=== PATIENT | male | born 1975 | race Caucasian/White ===

== ENCOUNTER 2021-09-08 15:45 | Inpatient (IN) | payer BC, SELFPAY ==
[~2021-09-08] VITALS: Ht 180.3 cm; Wt 86.2 kg
[2021-09-08 16:10] VITALS: BP_SYST 123
[2021-09-08 17:12] LABS: HEMOGLOBIN 7.8 g/dL (14.0-18.0); MEAN CORPUSCULAR VOLUME 115 fL (79.0-98.0)
[2021-09-08 17:21] LABS: HEMATOCRIT 22.4 % (36-54); MEAN CORPUSCULAR HEMOGLOBIN 40 pg (27-31); MEAN CORPUSCULAR HGB CONC 35 % (32-36); RED CELL DISTRIBUTION WIDTH 23.3 % (9.0-15.0)
[2021-09-08 17:24] LABS: RED BLOOD CELL COUNT(AUTO) 1.95 MIL/uL (4.2-6.2)
[2021-09-08 17:27] LABS: CALCIUM 8.5 mg/dL (8.4-11.0); CREATININE 0.79 mg/dL (0.55-1.30); POTASSIUM 3.9 mmol/L (3.5-5.1)
[2021-09-08 17:33] LABS: ALBUMIN 2.1 g/dL (3.4-4.8); INR 1.2 (0.80-1.20); PROTHROMBIN TIME 12.1 SECS (9.5-12.5); TOTAL BILIRUBIN 5.4 mg/dL (0.0-1.0)
[2021-09-08 17:42] LABS: C-REACTIVE PROTEIN QUANT 9.8 mg/dL (0-0.5)
[2021-09-08 18:34] LABS: BAND % (MANUAL) 1 % (0-6); LYMPHOCYTES % (MANUAL) 27 % (20-46)
[2021-09-08 18:35] LABS: BASOPHILS % (MANUAL) 0 % (0-2); EOSINOPHILS % (MANUAL) 0 % (0-7); MONOCYTES % (MANUAL) 11 % (0-11)
[2021-09-08 21:34] LABS: PLATELET COUNT (AUTO) 21 K/uL (130-430)
[2021-09-08] MEDS: NORMAL SALINE 5 ML DISP.SYRIN IVF SCH (22:00)
[2021-09-08] MEDS ORDERED: LORazepam 2 MG/ML VIAL IVP PRN (22:00)
[2021-09-08] MEDS ORDERED: IBUPROFEN 600 MG TABLET PO PRN (22:00)
[2021-09-08] MEDS ORDERED: NORMAL SALINE 5 ML DISP.SYRIN IVF SCH (22:00)
[2021-09-08] MEDS ORDERED: ONDANSETRON HCL 4 MG/2 ML VIAL IVP PRN (22:00)
[2021-09-08 22:07] VITALS: BP_SYST 112
[2021-09-09 01:09] VITALS: BP_SYST 109
[2021-09-09] MEDS: NORMAL SALINE 5 ML DISP.SYRIN IVF SCH ×2 (05:46→14:00)
[2021-09-09 06:31] LABS: ALBUMIN 1.6 g/dL (3.4-4.8); CALCIUM 7.5 mg/dL (8.4-11.0); CREATININE 0.65 mg/dL (0.55-1.30); PHOSPHORUS 1.8 mg/dL (2.7-4.5); POTASSIUM 3.8 mmol/L (3.5-5.1); TOTAL BILIRUBIN 4.2 mg/dL (0.0-1.0)
[2021-09-09 07:00] VITALS: BP_SYST 105; BP_SYST 113
[2021-09-09 09:59] LABS: MEAN CORPUSCULAR HEMOGLOBIN 39 pg (27-31); MEAN CORPUSCULAR HGB CONC 33 % (32-36); MEAN CORPUSCULAR VOLUME 116 fL (79.0-98.0); WHITE BLOOD COUNT (AUTO) 5.7 K/uL (4.8-10.8)
[2021-09-09 10:24] LABS: RED BLOOD CELL COUNT(AUTO) 1.73 MIL/uL (4.2-6.2)
[2021-09-09 10:27] LABS: HEMOGLOBIN 6.7 g/dL (14.0-18.0); PLATELET COUNT (AUTO) 17 K/uL (130-430)
[2021-09-09 11:38] LABS: ACETAMINOPHEN < 1 ug/mL (1-30)
[2021-09-09 11:41] LABS: TOTAL IRON BIND. CAPACITY 131 ug/dL (250-450)
[2021-09-09 12:25] VITALS: BP_SYST 102
[2021-09-09 13:34] LABS: BASOPHILS % (MANUAL) 0 % (0-2); EOSINOPHILS % (MANUAL) 0 % (0-7); LYMPHOCYTES % (MANUAL) 44 % (20-46); MONOCYTES % (MANUAL) 11 % (0-11)
[2021-09-09 16:06] VITALS: BP_SYST 108
[2021-09-09 19:00] VITALS: BP_SYST 106
[2021-09-09 20:00] VITALS: BP_SYST 106
[2021-09-10] MEDS: NORMAL SALINE 5 ML DISP.SYRIN IVF SCH ×4 (01:21→23:05)
[2021-09-10 01:32] VITALS: BP_SYST 109
[2021-09-10 05:54] LABS: BARBITURATE, URINE NEGATIVE (NEG <=200); BENZODIAZEPINE, URINE NEGATIVE (NEG <=150); CANNABINOID, URINE NEGATIVE (NEG <=50); COCAINE, URINE NEGATIVE (NEG <=150); METHAMPHETAMINES SCREEN,URINE NEGATIVE (NEG <=500); OPIATE, URINE NEGATIVE (NEG <=100); PHENCYCLIDINE SCREEN,URINE NEGATIVE (NEG <=25); UR TRICYCLIC ANTIDEPRESSANTS NEGATIVE (NEG <=300); URINE AMPHETAMINE NEGATIVE (NEG <=500); URINE METHADONE NEGATIVE (NEG <=200); URINE OXYCODONE SCREEN NEGATIVE (NEG <=100); URINE PROPOXYPHENE SCREEN NEGATIVE (NEG <=300)
[2021-09-10 07:04] LABS: INR 1.2 (0.80-1.20); PROTHROMBIN TIME 12.2 SECS (9.5-12.5)
[2021-09-10 07:55] LABS: ALBUMIN 1.6 g/dL (3.4-4.8); CALCIUM 7.8 mg/dL (8.4-11.0); CREATININE 0.61 mg/dL (0.55-1.30); POTASSIUM 3.3 mmol/L (3.5-5.1); TOTAL BILIRUBIN 4.4 mg/dL (0.0-1.0)
[2021-09-10 08:00] VITALS: BP_SYST 107
[2021-09-10 08:03] LABS: HEMATOCRIT 30.2 % (36-54); HEMOGLOBIN 10.4 g/dL (14.0-18.0); MEAN CORPUSCULAR HEMOGLOBIN 37 pg (27-31); MEAN CORPUSCULAR HGB CONC 35 % (32-36); MEAN CORPUSCULAR VOLUME 107 fL (79.0-98.0); RED BLOOD CELL COUNT(AUTO) 2.83 MIL/uL (4.2-6.2); RED CELL DISTRIBUTION WIDTH 25.1 % (9.0-15.0); WHITE BLOOD COUNT (AUTO) 5.1 K/uL (4.8-10.8)
[2021-09-10] MEDS ORDERED: SPIRONOLACTONE 50 MG TABLET (ALDACTONE) PO SCH (08:30)
[2021-09-10 08:32] LABS: PLATELET COUNT (AUTO) 18 K/uL (130-430)
[2021-09-10] MEDS: SPIRONOLACTONE 50 MG TABLET (ALDACTONE) PO SCH (09:22)
[2021-09-10] MEDS: FUROSEMIDE 40 MG TABLET PO SCH (09:23)
[2021-09-10 10:06] LABS: HEPATITIS A AB, IgM Negative (Negative); HEPATITIS B CORE AB, IgM Negative (Negative); HEPATITIS B SURFACE AG Negative (Negative)
[2021-09-10 12:09] LABS: BAND % (MANUAL) 2 % (0-6); BASOPHILS % (MANUAL) 0 % (0-2); CORRECTED WHITE BLOOD COUNT 4.8 K/uL (4.5-11.0); EOSINOPHILS % (MANUAL) 1 % (0-7); LYMPHOCYTES % (MANUAL) 46 % (20-46); MONOCYTES % (MANUAL) 7 % (0-11)
[2021-09-10 12:52] VITALS: BP_SYST 107
[2021-09-10 14:06] LABS: AFP, TUMOR MARKER 3.7 ng/mL (0.0-8.3)
[2021-09-10 16:48] VITALS: BP_SYST 111
[2021-09-10 20:00] VITALS: BP_SYST 111
[2021-09-11] VITALS: BP_SYST 111
[2021-09-11] MEDS ORDERED: PRED10TA PO (03:00)
[2021-09-11] MEDS ORDERED: URSO500T7 PO (03:00)
[2021-09-11] MEDS ORDERED: ACYC400T19 PO (03:00)
[2021-09-11 07:03] LABS: HEMATOCRIT 30.8 % (36-54); HEMOGLOBIN 10.7 g/dL (14.0-18.0); MEAN CORPUSCULAR HEMOGLOBIN 37 pg (27-31); MEAN CORPUSCULAR HGB CONC 35 % (32-36); MEAN CORPUSCULAR VOLUME 106 fL (79.0-98.0); RED BLOOD CELL COUNT(AUTO) 2.92 MIL/uL (4.2-6.2); RED CELL DISTRIBUTION WIDTH 25.4 % (9.0-15.0); WHITE BLOOD COUNT (AUTO) 5.6 K/uL (4.8-10.8)
[2021-09-11 07:22] LABS: ALANINE AMINOTRANSFERASE 75 U/L (12-78); ALBUMIN 1.5 g/dL (3.4-4.8); ASPARTATE AMINOTRANSFERASE 109 U/L (10-37); CALCIUM 7.6 mg/dL (8.4-11.0); CHLORIDE 103 mmol/L (98-107); CREATININE 0.55 mg/dL (0.55-1.30); GLUCOSE 119 mg/dL (70-99); POTASSIUM 3.1 mmol/L (3.5-5.1); SODIUM SERUM 137 mmol/L (136-145); TOTAL BILIRUBIN 4.8 mg/dL (0.0-1.0); UREA NITROGEN, BLOOD 10 mg/dL (8-21)
[2021-09-11 07:31] LABS: GFR AFRICAN AMERICAN 208 mL/min (>90)
[2021-09-11 07:32] LABS: ANION GAP < 3 (5-15)
[2021-09-11 08:14] VITALS: BP_SYST 106
[2021-09-11] MEDS: FUROSEMIDE 40 MG TABLET PO SCH (08:38)
[2021-09-11] MEDS: SPIRONOLACTONE 50 MG TABLET (ALDACTONE) PO SCH (08:39)
[2021-09-11] MEDS: KCL 40 mEq in D5W 1000 mL 1,000 ML IV SCH ×2 (09:58→19:30)
[2021-09-11] MEDS ORDERED: POTASSIUM CHLORIDE 20 MEQ TAB.PRT.SR PO ONE (10:00)
[2021-09-11] MEDS: NORMAL SALINE 5 ML DISP.SYRIN IVF SCH ×3 (10:00→20:36)
[2021-09-11 11:28] LABS: PLATELET COUNT (AUTO) 14 K/uL (130-430)
[2021-09-11 12:00] VITALS: BP_SYST 109
[2021-09-11 14:31] LABS: BAND % (MANUAL) 2 % (0-6); BASOPHILS % (MANUAL) 0 % (0-2); CORRECTED WHITE BLOOD COUNT 5.2 K/uL (4.5-11.0); EOSINOPHILS % (MANUAL) 1 % (0-7); LYMPHOCYTES % (MANUAL) 46 % (20-46); MONOCYTES % (MANUAL) 10 % (0-11)
[2021-09-11] MEDS ORDERED: TACR0.5C PO (15:44)
[2021-09-11] MEDS: ursodioL 300 MG CAPSULE PO SCH ×2 (16:04→20:35)
[2021-09-11 16:42] VITALS: BP_SYST 107
[2021-09-11 19:00] VITALS: BP_SYST 111
[2021-09-11 20:00] VITALS: BP_SYST 111
[2021-09-11] MEDS: ACYCLOVIR 400 MG TABLET PO SCH (20:35)
[2021-09-12 01:44] VITALS: BP_SYST 101
[2021-09-12] MEDS: KCL 40 mEq in D5W 1000 mL 1,000 ML IV SCH ×2 (04:51→14:23)
[2021-09-12] MEDS: NORMAL SALINE 5 ML DISP.SYRIN IVF SCH ×2 (04:52→12:11)
[2021-09-12 07:55] VITALS: BP_SYST 94
[2021-09-12 08:08] LABS: ANTI NUCLEAR AB WITH REFLEX Negative (Negative)
[2021-09-12 08:30] VITALS: BP_SYST 98
[2021-09-12 08:43] LABS: ALBUMIN 1.6 g/dL (3.4-4.8); CALCIUM 7.9 mg/dL (8.4-11.0); CREATININE 0.6 mg/dL (0.55-1.30); POTASSIUM 3.6 mmol/L (3.5-5.1); TOTAL BILIRUBIN 5.5 mg/dL (0.0-1.0)
[2021-09-12] MEDS ORDERED: predniSONE 10 MG TABLET PO SCH (09:00)
[2021-09-12 09:05] LABS: HEMATOCRIT 31.5 % (36-54); HEMOGLOBIN 10.7 g/dL (14.0-18.0); MEAN CORPUSCULAR HEMOGLOBIN 36 pg (27-31); MEAN CORPUSCULAR HGB CONC 34 % (32-36); MEAN CORPUSCULAR VOLUME 106 fL (79.0-98.0); RED BLOOD CELL COUNT(AUTO) 2.96 MIL/uL (4.2-6.2); RED CELL DISTRIBUTION WIDTH 25.6 % (9.0-15.0); WHITE BLOOD COUNT (AUTO) 5.7 K/uL (4.8-10.8)
[2021-09-12 09:37] LABS: PLATELET COUNT (AUTO) 34 K/uL (130-430)
[2021-09-12 12:00] VITALS: BP_SYST 113
[2021-09-12] MEDS: ursodioL 300 MG CAPSULE PO SCH ×2 (12:05→14:24)
[2021-09-12] MEDS: ACYCLOVIR 400 MG TABLET PO SCH (12:07)
[2021-09-12] MEDS: SPIRONOLACTONE 50 MG TABLET (ALDACTONE) PO SCH (12:07)
[2021-09-12] MEDS: FUROSEMIDE 40 MG TABLET PO SCH (12:08)
[2021-09-12] MEDS ORDERED: TACROLIMUS ANHYDROUS 0.5 MG CAPSULE (PROGRAF) PO ONE (12:15)
[2021-09-12 13:17] LABS: BASOPHILS % (MANUAL) 0 % (0-2); EOSINOPHILS % (MANUAL) 2 % (0-7); LYMPHOCYTES % (MANUAL) 56 % (20-46); MONOCYTES % (MANUAL) 5 % (0-11)
[2021-09-12] MEDS ORDERED: SPIR50TA PO (13:58)
[2021-09-12] MEDS ORDERED: FURO-149 PO (13:58)
[2021-09-12 14:36] VITALS: BP_SYST 113
[2021-09-12] MEDS ORDERED: TACROLIMUS ANHYDROUS 0.5 MG CAPSULE (PROGRAF) PO SCH (21:00)
== END 2021-09-12 15:20 | disposition home or self-care (01) | DRG 813 ==
LOC: SED 15:45 → SMU 18:30
PROVIDERS: ADMIT Preventive Medicine Preventive Medicine/Occupational Environmental Medicine; ATTEND Preventive Medicine Preventive Medicine/Occupational Environmental Medicine
PROC: 30233N1 Transfusion of Nonautologous Red Blood Cells into Peripheral Vein, Percutaneous Approach (ICD-10-PCS; 2021-09-09)
PROC: 30233R1 Transfusion of Nonautologous Platelets into Peripheral Vein, Percutaneous Approach (ICD-10-PCS; principal; 2021-09-12)
DX: D69.6 Thrombocytopenia, unspecified (principal); E43 Unspecified severe protein-calorie malnutrition; D89.813 Graft-versus-host disease, unspecified; E87.1 Hypo-osmolality and hyponatremia; K70.31 Alcoholic cirrhosis of liver with ascites; D64.9 Anemia, unspecified; E83.52 Hypercalcemia; E87.6 Hypokalemia; R73.9 Hyperglycemia, unspecified; Z20.822 Contact with and (suspected) exposure to COVID-19; F17.200 Nicotine dependence, unspecified, uncomplicated; Z92.21 Personal history of antineoplastic chemotherapy; Z85.6 Personal history of leukemia; Z68.26 Body mass index [BMI] 26.0-26.9, adult
CPT/HCPCS: 36415; 71045; 76376; 76700-TC; 78226; 80053; 80074; 80076; 80307; 82103; 82105; 82140; 82150; 82390; 82607; 82728; 82746; 83516; 83540; 83550; 83690; 83735; 83880; 84100; 84484; 85007; 85027; 85044; 85610-TC; 85730-TC; 86038; 86140; 86376; 86886; 86900; 86901; 86920; 86945-TC; 93005; 99285; A9537; G0480; G0481; J7507; J7512; P9021; P9034